=== PATIENT | male | born 1945 | race Hispanic/Latino ===

== ENCOUNTER 2021-06-20 16:50 | Inpatient (IN) | payer MEDICARE, OTHER ==
[~2021-06-20] VITALS: Ht 162.6 cm; Wt 79.2 kg
[2021-06-20] MEDS ORDERED: VITAMIN B-121000 MCG PO (17:33)
[2021-06-20] MEDS ORDERED: XARELTO20 MG PO (17:33)
[2021-06-20] MEDS ORDERED: FEROSUL325 MG PO (17:33)
[2021-06-20] MEDS ORDERED: NEURONTIN300 MG PO (17:33)
[2021-06-20] MEDS ORDERED: LEXAPRO10 MG PO (17:33)
[2021-06-20] MEDS ORDERED: ASPIRIN 81 MG CHEW TAB PO ONE ×2 (18:00)
[2021-06-20] MEDS ORDERED: SODIUM CHLORIDE 0.9% 250ML 250 ML IV ONE (18:00)
[2021-06-20 18:04] LABS: BASOPHILS % 0.4 % (0.0-1.0); EOSINOPHILS % 0.2 % (0.0-6.0); HEMATOCRIT 24.3 % (38.2-49.6); LYMPHOCYTES # (AUTO) 1.8 (1.0-3.2); LYMPHOCYTES % 32.4 % (18.0-39.1); MEAN CORPUSCULAR HEMOGLOBIN 23.5 pg (28-32); MEAN CORPUSCULAR HGB CONC 28.8 g/dL (31-35); MEAN CORPUSCULAR VOLUME 81.5 fL (81-99); MONOCYTES # (AUTO) 0.5 (0.2-0.8); MONOCYTES % 9.8 % (4.4-11.3); NEUTROPHILS # (AUTO) 3.1 (2.1-6.9); NEUTROPHILS % 56.8 % (38.7-80.0); PLATELET COUNT 317 x10e3/uL (140-360); RED BLOOD COUNT 2.98 x10e6/uL (4.3-5.7); RED CELL DISTRIBUTION WIDTH 14.6 % (11.7-14.4)
[2021-06-20 18:24] LABS: ALBUMIN 2.5 g/dL (3.5-5.0); ALBUMIN/GLOBULIN RATIO 0.5 (0.8-2.0); ANION GAP 11.6 mmol/L (8-16); CALCIUM 7.8 mg/dL (8.4-10.2); CREATININE, SERUM 1.27 mg/dL (0.72-1.25); POTASSIUM 4.6 mmol/L (3.5-5.1)
[2021-06-20 18:30] LABS: CREATINE KINASE MB 1.1 ng/mL (0-5.0)
[2021-06-20] MEDS: SODIUM CHLORIDE 0.9% 1000ML 1,000 ML IV SCH (19:36)
[2021-06-20] MEDS: GABAPENTIN 300 MG CAP PO SCH (21:00)
[2021-06-20 21:30] VITALS: BP 131/51
[2021-06-20 21:47] VITALS: BP 131/51
[2021-06-20] MEDS ORDERED: ASPIRIN CHEW81 MG PO (22:36)
[2021-06-20] MEDS ORDERED: BIKTARVY 50-201 EACH PO (22:38)
[2021-06-20] MEDS ORDERED: OMEPRAZOLE40 MG PO (22:39)
[2021-06-21] VITALS (8 sets, daily range): BP systolic 109–141; BP diastolic 45–80
[2021-06-21 02:43] LABS: CREATINE KINASE MB 1.1 ng/mL (0-5.0)
[2021-06-21] MEDS: SODIUM CHLORIDE 0.9% 1000ML 1,000 ML IV SCH (04:00)
[2021-06-21] MEDS ORDERED: SODIUM CHLORIDE 0.9% 250ML 250 ML ONE ×2 (05:29→12:08)
[2021-06-21 06:22] LABS: BASOPHILS % 0.2 % (0.0-1.0); EOSINOPHILS % 0.7 % (0.0-6.0); LYMPHOCYTES # (AUTO) 1.4 (1.0-3.2); LYMPHOCYTES % 33.4 % (18.0-39.1); MEAN CORPUSCULAR HEMOGLOBIN 23.7 pg (28-32); MEAN CORPUSCULAR HGB CONC 29.7 g/dL (31-35); MEAN CORPUSCULAR VOLUME 79.8 fL (81-99); MONOCYTES # (AUTO) 0.6 (0.2-0.8); MONOCYTES % 13.7 % (4.4-11.3); NEUTROPHILS # (AUTO) 2.2 (2.1-6.9); NEUTROPHILS % 51.5 % (38.7-80.0); PLATELET COUNT 312 x10e3/uL (140-360); RED BLOOD COUNT 2.62 x10e6/uL (4.3-5.7); RED CELL DISTRIBUTION WIDTH 14.6 % (11.7-14.4)
[2021-06-21 06:37] LABS: HEMATOCRIT 20.9 % (38.2-49.6); HEMOGLOBIN 6.2 g/dL (14.0-18.0)
[2021-06-21 06:53] LABS: ALBUMIN/GLOBULIN RATIO 0.5 (0.8-2.0); ANION GAP 9.1 mmol/L (8-16); CALCIUM 7.5 mg/dL (8.4-10.2); CREATININE, SERUM 1.15 mg/dL (0.72-1.25); POTASSIUM 4.1 mmol/L (3.5-5.1)
[2021-06-21] MEDS: CITALOPRAM HYDROBROMIDE 20 MG TAB PO SCH (09:10)
[2021-06-21] MEDS: GABAPENTIN 300 MG CAP PO SCH ×3 (09:10→20:08)
[2021-06-21] MEDS: OMEPRAZOLE 20 MG CAP PO SCH (09:10)
[2021-06-21] MEDS ORDERED: IOPAMIDOL 370 MG/ML 200 ML INFUS..BTL INJ ONE (13:14)
[2021-06-21] MEDS ORDERED: SODIUM CHLORIDE 0.9% 50ML 0 ML ONE (13:14)
[2021-06-21 14:33] LABS: CREATINE KINASE MB 1.1 ng/mL (0-5.0)
[2021-06-22 00:05] VITALS: BP 128/70
[2021-06-22 04:13] VITALS: BP 118/51
[2021-06-22 05:07] LABS: BASOPHILS % 0.4 % (0.0-1.0); EOSINOPHILS % 0.8 % (0.0-6.0); HEMATOCRIT 24.1 % (38.2-49.6); HEMOGLOBIN 7.4 g/dL (14.0-18.0); LYMPHOCYTES # (AUTO) 1.5 (1.0-3.2); LYMPHOCYTES % 31.7 % (18.0-39.1); MEAN CORPUSCULAR HEMOGLOBIN 24.9 pg (28-32); MEAN CORPUSCULAR HGB CONC 30.7 g/dL (31-35); MEAN CORPUSCULAR VOLUME 81.1 fL (81-99); MONOCYTES # (AUTO) 0.6 (0.2-0.8); MONOCYTES % 12.9 % (4.4-11.3); NEUTROPHILS # (AUTO) 2.6 (2.1-6.9); NEUTROPHILS % 53.6 % (38.7-80.0); PLATELET COUNT 287 x10e3/uL (140-360); RED BLOOD COUNT 2.97 x10e6/uL (4.3-5.7); RED CELL DISTRIBUTION WIDTH 14.7 % (11.7-14.4)
[2021-06-22 05:22] LABS: ANION GAP 11.1 mmol/L (8-16); CALCIUM 7.4 mg/dL (8.4-10.2); CREATININE, SERUM 1.15 mg/dL (0.72-1.25); POTASSIUM 4.1 mmol/L (3.5-5.1)
[2021-06-22 08:30] VITALS: BP 143/56
[2021-06-22 08:47] VITALS: BP 143/56
[2021-06-22] MEDS: CYANOCOBALAMIN 1,000 MCG TAB PO SCH (08:58)
[2021-06-22] MEDS: CITALOPRAM HYDROBROMIDE 20 MG TAB PO SCH (08:58)
[2021-06-22] MEDS: GABAPENTIN 300 MG CAP PO SCH ×3 (08:58→20:15)
[2021-06-22] MEDS: OMEPRAZOLE 20 MG CAP PO SCH (08:58)
[2021-06-22] MEDS ORDERED: PIPERACILLIN/TAZOBACTAM 3.375 GM in SODIUM CHLORIDE 0.9% 50ML 50 ML IV SCH (10:00)
[2021-06-22] MEDS: Vancomycin IV 1 GM in SODIUM CHLORIDE 0.9% 250ML 250 ML IV SCH ×2 (13:16→20:32)
[2021-06-22 13:43] LABS: HEMATOCRIT 25.6 % (38.2-49.6); HEMOGLOBIN 7.5 g/dL (14.0-18.0); LYMPHOCYTES # (AUTO) 1.1 (1.0-3.2); LYMPHOCYTES % 27.3 % (18.0-39.1); MEAN CORPUSCULAR HEMOGLOBIN 24.3 pg (28-32); MEAN CORPUSCULAR HGB CONC 29.3 g/dL (31-35); MEAN CORPUSCULAR VOLUME 82.8 fL (81-99); MONOCYTES # (AUTO) 0.4 (0.2-0.8); MONOCYTES % 10.8 % (4.4-11.3); NEUTROPHILS # (AUTO) 2.4 (2.1-6.9); NEUTROPHILS % 60.6 % (38.7-80.0); PLATELET COUNT 298 x10e3/uL (140-360); RED BLOOD COUNT 3.09 x10e6/uL (4.3-5.7); RED CELL DISTRIBUTION WIDTH 14.7 % (11.7-14.4)
[2021-06-22] MEDS ORDERED: DEXAMETHASONE PHOS 10MG INJ 20 MG in SODIUM CHLORIDE 0.9% 50ML 50 ML IV ONE (14:30)
[2021-06-22] MEDS ORDERED: FAMOTIDINE INJ 20 MG in SODIUM CHLORIDE 0.9% 50ML 50 ML IV ONE (15:00)
[2021-06-22] MEDS: CEFEPIME 1 GM in SODIUM CHLORIDE 0.9% 50ML 50 ML IV SCH ×2 (15:25→22:15)
[2021-06-22] MEDS ORDERED: DIPHENHYDRAMINE HCL INJ 25 MG in SODIUM CHLORIDE 0.9% 50ML 50 ML IV ONE (15:30)
[2021-06-22] MEDS ORDERED: IRON DEXTRAN INJ 50 MG in SODIUM CHLORIDE 0.9% 100 ML IV ONE (16:00)
[2021-06-22] MEDS ORDERED: IRON DEXTRAN INJ 500 MG in SODIUM CHLORIDE 0.9% 500ML 500 ML IV PRN (16:30)
[2021-06-22] MEDS: ACETAMINOPHEN 325 MG TAB PO PRN (17:33)
[2021-06-22 20:41] VITALS: BP 127/48
[2021-06-22 21:45] VITALS: BP 127/48
[2021-06-23 00:21] VITALS: BP 112/48
[2021-06-23 04:21] VITALS: BP 108/51
[2021-06-23] MEDS: CEFEPIME 1 GM in SODIUM CHLORIDE 0.9% 50ML 50 ML IV SCH ×3 (06:25→22:57)
[2021-06-23 07:27] LABS: BASOPHILS % 0.2 % (0.0-1.0); HEMATOCRIT 25.7 % (38.2-49.6); HEMOGLOBIN 7.5 g/dL (14.0-18.0); LYMPHOCYTES # (AUTO) 0.9 (1.0-3.2); LYMPHOCYTES % 22.4 % (18.0-39.1); MEAN CORPUSCULAR HEMOGLOBIN 24.5 pg (28-32); MEAN CORPUSCULAR HGB CONC 29.2 g/dL (31-35); MONOCYTES # (AUTO) 0.1 (0.2-0.8); MONOCYTES % 1.5 % (4.4-11.3); NEUTROPHILS % 75.4 % (38.7-80.0); PLATELET COUNT 290 x10e3/uL (140-360); RED BLOOD COUNT 3.06 x10e6/uL (4.3-5.7); RED CELL DISTRIBUTION WIDTH 14.6 % (11.7-14.4)
[2021-06-23 07:41] VITALS: BP 116/53
[2021-06-23 07:42] LABS: ALBUMIN 2.2 g/dL (3.5-5.0); ALBUMIN/GLOBULIN RATIO 0.6 (0.8-2.0); ANION GAP 10.9 mmol/L (8-16); CALCIUM 7.5 mg/dL (8.4-10.2); CREATININE, SERUM 1.06 mg/dL (0.72-1.25); POTASSIUM 4.9 mmol/L (3.5-5.1)
[2021-06-23] MEDS: Vancomycin IV 1 GM in SODIUM CHLORIDE 0.9% 250ML 250 ML IV SCH ×2 (09:47→20:55)
[2021-06-23] MEDS: CITALOPRAM HYDROBROMIDE 20 MG TAB PO SCH (09:47)
[2021-06-23] MEDS: OMEPRAZOLE 20 MG CAP PO SCH (09:47)
[2021-06-23] MEDS: CYANOCOBALAMIN 1,000 MCG TAB PO SCH (09:48)
[2021-06-23] MEDS: GABAPENTIN 300 MG CAP PO SCH ×3 (09:48→20:55)
[2021-06-23 11:33] VITALS: BP 101/53
[2021-06-23 15:47] VITALS: BP 111/51
[2021-06-23 20:00] VITALS: BP 116/48
[2021-06-23] MEDS ORDERED: HYDROCODONE/APAP 5MG-325MG TAB PO PRN (20:30)
[2021-06-23] MEDS ORDERED: SODIUM CHLORIDE 0.9% 250ML 250 ML ONE (20:55)
[2021-06-24] VITALS: BP 111/51
[2021-06-24 04:00] VITALS: BP 115/54
[2021-06-24] MEDS: CEFEPIME 1 GM in SODIUM CHLORIDE 0.9% 50ML 50 ML IV SCH ×3 (05:35→22:45)
[2021-06-24] MEDS ORDERED: SODIUM CHLORIDE 0.9% 250ML 250 ML IV ONE (07:30)
[2021-06-24] MEDS: OMEPRAZOLE 20 MG CAP PO SCH (07:30)
[2021-06-24 07:37] VITALS: BP 117/52
[2021-06-24] MEDS: CYANOCOBALAMIN 1,000 MCG TAB PO SCH (09:27)
[2021-06-24] MEDS: Vancomycin IV 1 GM in SODIUM CHLORIDE 0.9% 250ML 250 ML IV SCH ×2 (09:27→20:30)
[2021-06-24] MEDS: CITALOPRAM HYDROBROMIDE 20 MG TAB PO SCH (09:27)
[2021-06-24] MEDS: GABAPENTIN 300 MG CAP PO SCH ×3 (09:27→20:30)
[2021-06-24 11:32] VITALS: BP 114/53
[2021-06-24] MEDS ORDERED: CITRATE OF MAGNESIA 300ML BOTTLE PO ONE (13:00)
[2021-06-24 15:58] VITALS: BP 133/64
[2021-06-24 20:00] VITALS: BP 121/60
[2021-06-25] VITALS (8 sets, daily range): BP systolic 109–134; BP diastolic 50–60
[2021-06-25] MEDS: CEFEPIME 1 GM in SODIUM CHLORIDE 0.9% 50ML 50 ML IV SCH ×3 (05:10→21:24)
[2021-06-25] MEDS: OMEPRAZOLE 20 MG CAP PO SCH (10:56)
[2021-06-25] MEDS: Vancomycin IV 1 GM in SODIUM CHLORIDE 0.9% 250ML 250 ML IV SCH (10:57)
[2021-06-25] MEDS: CITALOPRAM HYDROBROMIDE 20 MG TAB PO SCH (10:57)
[2021-06-25] MEDS: GABAPENTIN 300 MG CAP PO SCH ×3 (10:58→21:24)
[2021-06-25] MEDS: CYANOCOBALAMIN 1,000 MCG TAB PO SCH (11:00)
[2021-06-25] MEDS ORDERED: SODIUM CHLORIDE 0.9% 250ML 250 ML ONE (12:18)
[2021-06-25] MEDS: ACETAMINOPHEN 325 MG TAB PO PRN (21:24)
[2021-06-26] VITALS (8 sets, daily range): BP systolic 90–130; BP diastolic 48–96
[2021-06-26] MEDS: CEFEPIME 1 GM in SODIUM CHLORIDE 0.9% 50ML 50 ML IV SCH ×3 (06:03→22:00)
[2021-06-26] MEDS: OMEPRAZOLE 20 MG CAP PO SCH ×2 (07:30→11:37)
[2021-06-26] MEDS: CYANOCOBALAMIN 1,000 MCG TAB PO SCH ×2 (09:00→11:37)
[2021-06-26] MEDS: CITALOPRAM HYDROBROMIDE 20 MG TAB PO SCH ×2 (09:00→11:37)
[2021-06-26 09:19] LABS: BASOPHILS % 0.6 % (0.0-1.0); EOSINOPHILS # (AUTO) 0.1 (0.0-0.4); EOSINOPHILS % 1.7 % (0.0-6.0); HEMATOCRIT 27.7 % (38.2-49.6); LYMPHOCYTES # (AUTO) 1.1 (1.0-3.2); LYMPHOCYTES % 23.7 % (18.0-39.1); MEAN CORPUSCULAR HEMOGLOBIN 24.2 pg (28-32); MEAN CORPUSCULAR HGB CONC 28.9 g/dL (31-35); MEAN CORPUSCULAR VOLUME 83.9 fL (81-99); MONOCYTES # (AUTO) 0.6 (0.2-0.8); MONOCYTES % 13.3 % (4.4-11.3); NEUTROPHILS # (AUTO) 2.9 (2.1-6.9); NEUTROPHILS % 60.1 % (38.7-80.0); PLATELET COUNT 272 x10e3/uL (140-360); RED CELL DISTRIBUTION WIDTH 15.3 % (11.7-14.4)
[2021-06-26 09:30] LABS: CALCIUM 7.8 mg/dL (8.4-10.2); CREATININE, SERUM 1.02 mg/dL (0.72-1.25)
[2021-06-26] MEDS: GABAPENTIN 300 MG CAP PO SCH ×3 (11:37→21:00)
[2021-06-26] MEDS ORDERED: FENTANYL CITRATE/PF 100MCG/2 ML INJ ONE (11:48)
[2021-06-26] MEDS ORDERED: Morphine 10mg syringe 10 MG/ML INJ ONE (11:48)
[2021-06-26] MEDS ORDERED: KETAMINE HCL INJ 50 MG/ML 10 ML VIAL ONE (11:48)
[2021-06-26] MEDS: Vancomycin IV 1.25 GM in SODIUM CHLORIDE 0.9% 250ML 250 ML IV SCH (12:00)
[2021-06-26] MEDS ORDERED: ACETAMINOPHEN 1000 MG/100 ML IV PRN (14:45)
[2021-06-26] MEDS ORDERED: DIPHENHYDRAMINE HCL INJ 50 MG/ML VIAL IM PRN (14:45)
[2021-06-26] MEDS ORDERED: KETOROLAC TROMETHAMINE 30 MG/ML VIAL IV PRN (14:45)
[2021-06-26] MEDS ORDERED: MORPHINE SULFATE 1 MG/ML 30ML PCA IV PRN (14:45)
[2021-06-26] MEDS ORDERED: ONDANSETRON HCL INJ 2MG/ML 2ML 2 MG/ML VIAL IV PRN (14:45)
[2021-06-26] MEDS ORDERED: NALOXONE HCL INJ 0.4 MG/ML AMP IV PRN (14:45)
[2021-06-26] MEDS ORDERED: MORPHINE SULFATE 1 MG/ML 30ML PCA ONE (15:21)
[2021-06-26] MEDS ORDERED: GLYCOPYRROLATE INJ 0.2 MG/ML VIAL ONE (16:40)
[2021-06-26] MEDS ORDERED: DEXAMETHASONE SOD PHOS INJ 4 MG/ML SDV ONE (16:40)
[2021-06-26] MEDS ORDERED: NEOSTIGMINE 1 MG/ML 10ML VIAL ONE (16:40)
[2021-06-26] MEDS ORDERED: ROCURONIUM BROMIDE 10 MG/ML 5ML VIAL IV ONE (16:40)
[2021-06-26] MEDS ORDERED: PROPOFOL IV EMULSION 10 MG/ML 20 ML VIAL ONE (16:40)
[2021-06-26] MEDS ORDERED: LIDOCAINE HCL 2% LOCAL INJ 5 ML SDV VIAL INJ ONE (16:40)
[2021-06-26] MEDS ORDERED: POVIDONE IODINE 0.05% 0.05 % ML PO ONE (16:40)
[2021-06-26] MEDS ORDERED: ONDANSETRON HCL INJ 2MG/ML 2ML 2 MG/ML VIAL ONE (16:40)
[2021-06-26] MEDS ORDERED: EPHEDRINE SULFATE INJ 50 MG/ML VIAL ONE (16:40)
[2021-06-26] MEDS ORDERED: SEVOFLURANE INHAL SOLN 250 ML PEN BTL ONE (16:40)
[2021-06-26] MEDS ORDERED: SUCCINYLCHOLINE CHLORIDE 20 MG/ML 10ML VIAL ONE (16:40)
[2021-06-26] MEDS: DEXTROSE 5%/LACTATED RINGERS 1,000 ML IV SCH ×2 (17:57→22:16)
[2021-06-27] VITALS (8 sets, daily range): BP systolic 98–117; BP diastolic 55–66
[2021-06-27 05:13] LABS: BASOPHILS % 0.1 % (0.0-1.0); HEMATOCRIT 27.8 % (38.2-49.6); HEMOGLOBIN 7.8 g/dL (14.0-18.0); LYMPHOCYTES # (AUTO) 0.9 (1.0-3.2); LYMPHOCYTES % 8.4 % (18.0-39.1); MEAN CORPUSCULAR HEMOGLOBIN 23.9 pg (28-32); MEAN CORPUSCULAR HGB CONC 28.1 g/dL (31-35); MONOCYTES # (AUTO) 0.9 (0.2-0.8); MONOCYTES % 8.6 % (4.4-11.3); NEUTROPHILS # (AUTO) 8.6 (2.1-6.9); NEUTROPHILS % 82.6 % (38.7-80.0); PLATELET COUNT 301 x10e3/uL (140-360); RED BLOOD COUNT 3.27 x10e6/uL (4.3-5.7); RED CELL DISTRIBUTION WIDTH 15.8 % (11.7-14.4)
[2021-06-27 05:49] LABS: ANION GAP 14.2 mmol/L (8-16); CALCIUM 7.3 mg/dL (8.4-10.2); CREATININE, SERUM 2.37 mg/dL (0.72-1.25)
[2021-06-27 06:24] LABS: POTASSIUM 5.2 mmol/L (3.5-5.1)
[2021-06-27] MEDS: DEXTROSE 5%/LACTATED RINGERS 1,000 ML IV SCH (06:48)
[2021-06-27] MEDS: CEFEPIME 1 GM in SODIUM CHLORIDE 0.9% 50ML 50 ML IV SCH (06:48)
[2021-06-27] MEDS ORDERED: DEXTROSE 5%/0.45% SOD CHL 1,000 ML IV SCH (07:30)
[2021-06-27] MEDS: OMEPRAZOLE 20 MG CAP PO SCH (07:30)
[2021-06-27] MEDS: CITALOPRAM HYDROBROMIDE 20 MG TAB PO SCH (09:00)
[2021-06-27] MEDS: CYANOCOBALAMIN 1,000 MCG TAB PO SCH (09:00)
[2021-06-27] MEDS: Vancomycin IV 1.25 GM in SODIUM CHLORIDE 0.9% 250ML 250 ML IV SCH (11:19)
[2021-06-27] MEDS: Clindamycin INJ 600 MG 600 MG in SODIUM CHLORIDE 0.9% 50ML 50 ML IV SCH ×2 (14:00→22:16)
[2021-06-27] MEDS ORDERED: SOD POLYSTYRENE SULFONATE SUSP 15 GM/60 ML BTL PO ONE (18:00)
[2021-06-27] MEDS: SODIUM CHLORIDE 0.9% 1000ML 1,000 ML IV SCH (18:22)
[2021-06-27] MEDS: ACETAMINOPHEN 325 MG TAB PO PRN (20:45)
[2021-06-28] VITALS (7 sets, daily range): BP systolic 108–130; BP diastolic 58–63
[2021-06-28] MEDS: SODIUM CHLORIDE 0.9% 1000ML 1,000 ML IV SCH ×3 (02:21→21:58)
[2021-06-28 05:04] LABS: BASOPHILS % 0.1 % (0.0-1.0); EOSINOPHILS % 0.2 % (0.0-6.0); HEMATOCRIT 24.1 % (38.2-49.6); LYMPHOCYTES # (AUTO) 0.9 (1.0-3.2); MEAN CORPUSCULAR HEMOGLOBIN 23.8 pg (28-32); MONOCYTES # (AUTO) 0.7 (0.2-0.8); MONOCYTES % 8.8 % (4.4-11.3); NEUTROPHILS # (AUTO) 6.6 (2.1-6.9); NEUTROPHILS % 79.3 % (38.7-80.0); PLATELET COUNT 209 x10e3/uL (140-360); RED BLOOD COUNT 2.94 x10e6/uL (4.3-5.7)
[2021-06-28] MEDS: ACETAMINOPHEN 325 MG TAB PO PRN (05:10)
[2021-06-28] MEDS: Clindamycin INJ 600 MG 600 MG in SODIUM CHLORIDE 0.9% 50ML 50 ML IV SCH ×3 (06:01→21:58)
[2021-06-28 07:00] LABS: ALBUMIN 1.9 g/dL (3.5-5.0); ALBUMIN/GLOBULIN RATIO 0.5 (0.8-2.0); ANION GAP 12.8 mmol/L (8-16); CALCIUM 7.6 mg/dL (8.4-10.2); CREATININE, SERUM 1.95 mg/dL (0.72-1.25); POTASSIUM 4.8 mmol/L (3.5-5.1)
[2021-06-28] MEDS: CITALOPRAM HYDROBROMIDE 20 MG TAB PO SCH ×2 (09:00→09:24)
[2021-06-28] MEDS: OMEPRAZOLE 20 MG CAP PO SCH (09:14)
[2021-06-28] MEDS: CEFTRIAXONE 1 GM in SODIUM CHLORIDE 0.9% 50ML 50 ML IV SCH (09:14)
[2021-06-28] MEDS: CYANOCOBALAMIN 1,000 MCG TAB PO SCH (09:16)
[2021-06-28] MEDS ORDERED: MORPHINE SULFATE 1 MG/ML 30ML PCA IV PRN (12:15)
[2021-06-28] MEDS ORDERED: BISACODYL 10 MG SUPP PR ONE (17:00)
[2021-06-29 01:08] VITALS: BP 141/66
[2021-06-29] MEDS: SODIUM CHLORIDE 0.9% 1000ML 1,000 ML IV SCH ×2 (02:00→11:52)
[2021-06-29 04:41] VITALS: BP 156/70
[2021-06-29] MEDS: Clindamycin INJ 600 MG 600 MG in SODIUM CHLORIDE 0.9% 50ML 50 ML IV SCH ×3 (05:52→21:45)
[2021-06-29] MEDS: ACETAMINOPHEN 325 MG TAB PO PRN (05:57)
[2021-06-29 06:00] LABS: BASOPHILS % 0.1 % (0.0-1.0); EOSINOPHILS % 0.3 % (0.0-6.0); LYMPHOCYTES # (AUTO) 0.9 (1.0-3.2); LYMPHOCYTES % 9.4 % (18.0-39.1); MEAN CORPUSCULAR HEMOGLOBIN 23.6 pg (28-32); MEAN CORPUSCULAR HGB CONC 28.3 g/dL (31-35); MEAN CORPUSCULAR VOLUME 83.3 fL (81-99); MONOCYTES # (AUTO) 0.9 (0.2-0.8); MONOCYTES % 9.7 % (4.4-11.3); NEUTROPHILS # (AUTO) 7.7 (2.1-6.9); NEUTROPHILS % 79.8 % (38.7-80.0); RED BLOOD COUNT 2.88 x10e6/uL (4.3-5.7); RED CELL DISTRIBUTION WIDTH 15.9 % (11.7-14.4)
[2021-06-29 06:11] LABS: HEMOGLOBIN 6.9 g/dL (14.0-18.0)
[2021-06-29 06:14] LABS: PLATELET COUNT 240 x10e3/uL (140-360)
[2021-06-29 06:31] LABS: ALBUMIN 1.8 g/dL (3.5-5.0); ALBUMIN/GLOBULIN RATIO 0.4 (0.8-2.0); ANION GAP 13.4 mmol/L (8-16); CALCIUM 7.8 mg/dL (8.4-10.2); CREATININE, SERUM 1.19 mg/dL (0.72-1.25); POTASSIUM 4.4 mmol/L (3.5-5.1)
[2021-06-29] MEDS ORDERED: SODIUM CHLORIDE 0.9% 250ML 250 ML IV ONE ×2 (07:00→09:30)
[2021-06-29] MEDS ORDERED: FUROSEMIDE INJ 10 MG/ML 4 ML VIAL IV ONE (07:00)
[2021-06-29 08:28] VITALS: BP 129/54
[2021-06-29] MEDS: CEFTRIAXONE 1 GM in SODIUM CHLORIDE 0.9% 50ML 50 ML IV SCH (08:44)
[2021-06-29] MEDS: CITALOPRAM HYDROBROMIDE 20 MG TAB PO SCH (08:47)
[2021-06-29] MEDS: CYANOCOBALAMIN 1,000 MCG TAB PO SCH (08:47)
[2021-06-29] MEDS ORDERED: DEXAMETHASONE SOD PHOS 10 MG/1 ML VIAL IV ONE (09:30)
[2021-06-29] MEDS ORDERED: FUROSEMIDE INJ 10 MG/ML 2 ML VIAL IV ONE (09:30)
[2021-06-29 20:00] VITALS: BP 112/55
[2021-06-29 21:00] VITALS: BP 112/55
[2021-06-30] VITALS (8 sets, daily range): BP systolic 98–125; BP diastolic 45–54
[2021-06-30] MEDS: SODIUM CHLORIDE 0.9% 1000ML 1,000 ML IV SCH ×3 (00:20→23:58)
[2021-06-30] MEDS ORDERED: SODIUM CHLORIDE 0.9% 250ML 250 ML ONE (05:21)
[2021-06-30] MEDS: Clindamycin INJ 600 MG 600 MG in SODIUM CHLORIDE 0.9% 50ML 50 ML IV SCH ×3 (05:30→21:35)
[2021-06-30] MEDS ORDERED: HYDROCODONE/APAP 5MG-325MG TAB PO PRN (06:15)
[2021-06-30] MEDS: CEFTRIAXONE 1 GM in SODIUM CHLORIDE 0.9% 50ML 50 ML IV SCH (09:27)
[2021-06-30] MEDS ORDERED: ACETAMINOPHEN 1000 MG/100 ML IV PRN (09:30)
[2021-06-30 18:03] LABS: BASOPHILS % 0.1 % (0.0-1.0); HEMATOCRIT 27.2 % (38.2-49.6); HEMOGLOBIN 8.3 g/dL (14.0-18.0); LYMPHOCYTES # (AUTO) 1.2 (1.0-3.2); MEAN CORPUSCULAR HEMOGLOBIN 24.7 pg (28-32); MEAN CORPUSCULAR HGB CONC 30.5 g/dL (31-35); MONOCYTES # (AUTO) 0.5 (0.2-0.8); MONOCYTES % 7.3 % (4.4-11.3); NEUTROPHILS # (AUTO) 4.9 (2.1-6.9); NEUTROPHILS % 74.2 % (38.7-80.0); PLATELET COUNT 213 x10e3/uL (140-360); RED BLOOD COUNT 3.36 x10e6/uL (4.3-5.7); RED CELL DISTRIBUTION WIDTH 15.3 % (11.7-14.4)
[2021-06-30 18:22] LABS: ALBUMIN 1.9 g/dL (3.5-5.0); ALBUMIN/GLOBULIN RATIO 0.5 (0.8-2.0); ANION GAP 9.8 mmol/L (8-16); CALCIUM 8.1 mg/dL (8.4-10.2); CREATININE, SERUM 1.05 mg/dL (0.72-1.25); POTASSIUM 3.8 mmol/L (3.5-5.1)
[2021-06-30] MEDS: HYDROMORPHONE 1MG/1ML INJ IV PRN (21:35)
[2021-07-01] VITALS (8 sets, daily range): BP systolic 93–141; BP diastolic 51–90
[2021-07-01 05:48] LABS: BASOPHILS % 0.2 % (0.0-1.0); EOSINOPHILS % 0.7 % (0.0-6.0); HEMATOCRIT 29.5 % (38.2-49.6); LYMPHOCYTES # (AUTO) 1.3 (1.0-3.2); LYMPHOCYTES % 23.3 % (18.0-39.1); MEAN CORPUSCULAR HEMOGLOBIN 24.6 pg (28-32); MEAN CORPUSCULAR HGB CONC 30.5 g/dL (31-35); MEAN CORPUSCULAR VOLUME 80.6 fL (81-99); MONOCYTES # (AUTO) 0.4 (0.2-0.8); MONOCYTES % 7.8 % (4.4-11.3); NEUTROPHILS # (AUTO) 3.6 (2.1-6.9); NEUTROPHILS % 67.4 % (38.7-80.0); PLATELET COUNT 209 x10e3/uL (140-360); RED BLOOD COUNT 3.66 x10e6/uL (4.3-5.7); RED CELL DISTRIBUTION WIDTH 15.5 % (11.7-14.4)
[2021-07-01 06:21] LABS: ANION GAP 12.4 mmol/L (8-16); POTASSIUM 3.4 mmol/L (3.5-5.1)
[2021-07-01] MEDS: Clindamycin INJ 600 MG 600 MG in SODIUM CHLORIDE 0.9% 50ML 50 ML IV SCH ×3 (06:26→21:09)
[2021-07-01] MEDS: CEFTRIAXONE 1 GM in SODIUM CHLORIDE 0.9% 50ML 50 ML IV SCH (08:37)
[2021-07-01] MEDS: HYDROMORPHONE 1MG/1ML INJ IV PRN ×3 (08:37→23:40)
[2021-07-01] MEDS ORDERED: POTASSIUM CHLORIDE 10MEQ EA PO NR (10:30)
[2021-07-01] MEDS: SOD CHL 0.45%/POT CHL 20MEQ 1,000 ML IV SCH ×2 (17:21→19:59)
[2021-07-02] VITALS (8 sets, daily range): BP systolic 112–128; BP diastolic 53–63
[2021-07-02] MEDS: SOD CHL 0.45%/POT CHL 20MEQ 1,000 ML IV SCH (03:50)
[2021-07-02] MEDS: Clindamycin INJ 600 MG 600 MG in SODIUM CHLORIDE 0.9% 50ML 50 ML IV SCH (06:40)
[2021-07-02 07:36] LABS: BASOPHILS % 0.1 % (0.0-1.0); EOSINOPHILS % 0.5 % (0.0-6.0); HEMATOCRIT 29.7 % (38.2-49.6); LYMPHOCYTES # (AUTO) 1.5 (1.0-3.2); LYMPHOCYTES % 20.6 % (18.0-39.1); MEAN CORPUSCULAR HEMOGLOBIN 24.4 pg (28-32); MEAN CORPUSCULAR HGB CONC 30.3 g/dL (31-35); MEAN CORPUSCULAR VOLUME 80.5 fL (81-99); MONOCYTES # (AUTO) 0.4 (0.2-0.8); MONOCYTES % 5.7 % (4.4-11.3); NEUTROPHILS # (AUTO) 5.3 (2.1-6.9); NEUTROPHILS % 72.4 % (38.7-80.0); PLATELET COUNT 206 x10e3/uL (140-360); RED BLOOD COUNT 3.69 x10e6/uL (4.3-5.7); RED CELL DISTRIBUTION WIDTH 15.9 % (11.7-14.4)
[2021-07-02 08:02] LABS: ANION GAP 11.5 mmol/L (8-16); CALCIUM 8.1 mg/dL (8.4-10.2); CREATININE, SERUM 1.03 mg/dL (0.72-1.25); POTASSIUM 3.5 mmol/L (3.5-5.1)
[2021-07-02 08:27] LABS: MAGNESIUM 1.6 MG/DL (1.3-2.1)
[2021-07-02] MEDS ORDERED: HYDROCODONE/APAP 7.5MG-325MG 1 EA TAB PO PRN (08:45)
[2021-07-02] MEDS: CEFTRIAXONE 1 GM in SODIUM CHLORIDE 0.9% 50ML 50 ML IV SCH (09:12)
[2021-07-02] MEDS ORDERED: POTASSIUM CHLORIDE 10MEQ EA PO ONE (09:45)
[2021-07-02] MEDS: PANTOPRAZOLE SOD 40 MG TABEC PO SCH (09:45)
[2021-07-02] MEDS: SENNA-S TABLET PO SCH ×2 (09:58→17:29)
[2021-07-02] MEDS: CELECOXIB 100 MG CAP PO SCH ×2 (09:58→17:29)
[2021-07-02] MEDS: POLYETHYLENE GLYCOL 3350 17 GM PACK PO SCH ×2 (09:58→17:00)
[2021-07-02] MEDS ORDERED: ALBUTEROL/IPRATROPIUM 3 ML NEB NEB PRN (14:15)
[2021-07-03 00:21] VITALS: BP 119/55
[2021-07-03 04:52] VITALS: BP 122/60
[2021-07-03 05:48] LABS: BASOPHILS % 0.3 % (0.0-1.0); EOSINOPHILS # (AUTO) 0.1 (0.0-0.4); EOSINOPHILS % 1.4 % (0.0-6.0); HEMATOCRIT 27.9 % (38.2-49.6); HEMOGLOBIN 8.5 g/dL (14.0-18.0); LYMPHOCYTES # (AUTO) 1.1 (1.0-3.2); LYMPHOCYTES % 16.6 % (18.0-39.1); MEAN CORPUSCULAR HEMOGLOBIN 24.4 pg (28-32); MEAN CORPUSCULAR HGB CONC 30.5 g/dL (31-35); MEAN CORPUSCULAR VOLUME 80.2 fL (81-99); MONOCYTES # (AUTO) 0.4 (0.2-0.8); NEUTROPHILS # (AUTO) 4.9 (2.1-6.9); NEUTROPHILS % 75.1 % (38.7-80.0); PLATELET COUNT 203 x10e3/uL (140-360); RED BLOOD COUNT 3.48 x10e6/uL (4.3-5.7); RED CELL DISTRIBUTION WIDTH 15.8 % (11.7-14.4)
[2021-07-03 06:13] LABS: ANION GAP 10.7 mmol/L (8-16); CREATININE, SERUM 0.86 mg/dL (0.72-1.25); POTASSIUM 3.7 mmol/L (3.5-5.1)
[2021-07-03 08:45] VITALS: BP 128/58
[2021-07-03 08:54] VITALS: BP 128/58
[2021-07-03] MEDS: SENNA-S TABLET PO SCH (08:54)
[2021-07-03] MEDS: CELECOXIB 100 MG CAP PO SCH (08:54)
[2021-07-03] MEDS: POLYETHYLENE GLYCOL 3350 17 GM PACK PO SCH (08:54)
[2021-07-03] MEDS: PANTOPRAZOLE SOD 40 MG TABEC PO SCH (08:54)
[2021-07-03] MEDS ORDERED: ONDANSETRON ODT4 MG PO (09:53)
[2021-07-03] MEDS ORDERED: keflex PO (09:53)
[2021-07-03] MEDS ORDERED: FLOMAX0.4 MG PO (09:54)
[2021-07-03] MEDS ORDERED: CELEBREX100 MG PO (09:54)
== END 2021-07-03 10:33 | disposition home health service (06) | DRG 330 ==
LOC: ER 17:17 → ERHOLD 19:17 → OBSVTOIN 20:00 → MED/SURG2 20:51
PROVIDERS: ADMIT Internal Medicine; ATTEND Internal Medicine
PROC: 30233N1 Transfusion of Nonautologous Red Blood Cells into Peripheral Vein, Percutaneous Approach (ICD-10-PCS; 2021-06-21)
PROC: 0WPF0JZ Removal of Synthetic Substitute from Abdominal Wall, Open Approach (ICD-10-PCS; 2021-06-26)
PROC: 0DN80ZZ Release Small Intestine, Open Approach (ICD-10-PCS; 2021-06-26)
PROC: 0DB80ZZ Excision of Small Intestine, Open Approach (ICD-10-PCS; principal; 2021-06-26 12:30)
DX: K63.2 Fistula of intestine (principal); L02.211 Cutaneous abscess of abdominal wall; T85.79XA Infection and inflammatory reaction due to other internal prosthetic devices, implants and grafts, initial encounter; B20 Human immunodeficiency virus [HIV] disease; D68.59 Other primary thrombophilia; I82.891 Chronic embolism and thrombosis of other specified veins; N17.9 Acute kidney failure, unspecified; D64.9 Anemia, unspecified; I20.9 Angina pectoris, unspecified; Z85.038 Personal history of other malignant neoplasm of large intestine; R31.9 Hematuria, unspecified; E77.8 Other disorders of glycoprotein metabolism; E88.09 Other disorders of plasma-protein metabolism, not elsewhere classified; R77.1 Abnormality of globulin; K76.0 Fatty (change of) liver, not elsewhere classified; K57.10 Diverticulosis of small intestine without perforation or abscess without bleeding; Z20.822 Contact with and (suspected) exposure to COVID-19; Z79.01 Long term (current) use of anticoagulants; N40.0 Benign prostatic hyperplasia without lower urinary tract symptoms; D50.9 Iron deficiency anemia, unspecified; K63.89 Other specified diseases of intestine; Z90.49 Acquired absence of other specified parts of digestive tract; Z91.19 Patient's noncompliance with other medical treatment and regimen; Z91.11 Patient's noncompliance with dietary regimen; D89.0 Polyclonal hypergammaglobulinemia; B96.20 Unspecified Escherichia coli [E. coli] as the cause of diseases classified elsewhere; R53.81 Other malaise; R41.0 Disorientation, unspecified; K66.0 Peritoneal adhesions (postprocedural) (postinfection)
CPT/HCPCS: 36415; 71045; 71260; 74019; 74176; 74177; 80048; 80053; 80202; 82550; 82553; 82784; 83735; 84100; 84484; 85025; 86850; 86870; 86880; 86900; 86905; 86920; 86922; 87071; 87075; 87186; 87205; 88300; 88305; 88307; 93005; 94799; 96361; 97139; 99001; 99284; J0330; J0690; J0692; J0696; J1100; J1170; J1200; J1750; J1940; J2001; J2270; J2405; J2543; J2710; J3010; J3370; J7030; J7040; J7050; P9016; Q9967; U0002

== ENCOUNTER 2021-07-03 19:44 | Inpatient (IN) | payer MEDICARE, OTHER ==
[~2021-07-03] VITALS: Ht 162.6 cm; Wt 85.7 kg
[~2021-07-03 19:44] MED LIST: ASPIRIN CHEW81 MG PO; BIKTARVY 50-201 EACH PO; CELEBREX100 MG PO; FEROSUL325 MG PO; FLOMAX0.4 MG PO; LEXAPRO10 MG PO; NEURONTIN300 MG PO; OMEPRAZOLE40 MG PO; ONDANSETRON ODT4 MG PO; VITAMIN B-121000 MCG PO; XARELTO20 MG PO; keflex PO
[2021-07-03] MEDS ORDERED: SODIUM CHLORIDE 0.9% 1000ML 1,000 ML IV STA ×2 (20:07→23:06)
[2021-07-03] MEDS ORDERED: PIPERACILLIN/TAZOBACTAM 3.375 GM in SODIUM CHLORIDE 0.9% 50ML 50 ML IV STA (20:07)
[2021-07-03] MEDS ORDERED: Vancomycin IV 1 GM in SODIUM CHLORIDE 0.9% 250ML 250 ML IV STA (20:07)
[2021-07-03 20:18] LABS: BASOPHILS % 0.2 % (0.0-1.0); EOSINOPHILS # (AUTO) 0.1 (0.0-0.4); EOSINOPHILS % 0.4 % (0.0-6.0); HEMATOCRIT 31.7 % (38.2-49.6); HEMOGLOBIN 9.8 g/dL (14.0-18.0); LYMPHOCYTES % 8.5 % (18.0-39.1); MEAN CORPUSCULAR HEMOGLOBIN 24.6 pg (28-32); MEAN CORPUSCULAR HGB CONC 30.9 g/dL (31-35); MEAN CORPUSCULAR VOLUME 79.6 fL (81-99); MONOCYTES # (AUTO) 0.3 (0.2-0.8); MONOCYTES % 2.9 % (4.4-11.3); NEUTROPHILS # (AUTO) 10.2 (2.1-6.9); NEUTROPHILS % 87.5 % (38.7-80.0); PLATELET COUNT 314 x10e3/uL (140-360); RED BLOOD COUNT 3.98 x10e6/uL (4.3-5.7); RED CELL DISTRIBUTION WIDTH 15.9 % (11.7-14.4)
[2021-07-03 20:35] LABS: ALBUMIN 2.2 g/dL (3.5-5.0); ALBUMIN/GLOBULIN RATIO 0.5 (0.8-2.0); CALCIUM 8.5 mg/dL (8.4-10.2); CREATININE, SERUM 1.01 mg/dL (0.72-1.25)
[2021-07-03] MEDS ORDERED: ACETAMINOPHEN 1000 MG/100 ML IV STA (20:44)
[2021-07-03] MEDS ORDERED: SODIUM CHLORIDE 0.9% 50ML 50 ML ONE (21:22)
[2021-07-03] MEDS ORDERED: IOPAMIDOL 370 MG/ML 200 ML INFUS..BTL INJ ONE (21:22)
[2021-07-04] VITALS (8 sets, daily range): BP systolic 95–119; BP diastolic 50–54
[2021-07-04] MEDS ORDERED: SODIUM CHLORIDE 0.9% 50ML 50 ML ONE ×2 (00:36→20:44)
[2021-07-04] MEDS ORDERED: IOPAMIDOL 370 MG/ML 200 ML INFUS..BTL INJ ONE ×2 (00:37→20:44)
[2021-07-04] MEDS: SODIUM CHLORIDE 0.9% 1000ML 1,000 ML IV SCH ×2 (03:15→06:36)
[2021-07-04 08:06] LABS: BASOPHILS % 0.3 % (0.0-1.0); EOSINOPHILS # (AUTO) 0.1 (0.0-0.4); EOSINOPHILS % 1.2 % (0.0-6.0); HEMATOCRIT 24.7 % (38.2-49.6); HEMOGLOBIN 7.3 g/dL (14.0-18.0); LYMPHOCYTES # (AUTO) 0.8 (1.0-3.2); LYMPHOCYTES % 10.1 % (18.0-39.1); MEAN CORPUSCULAR HEMOGLOBIN 24.4 pg (28-32); MEAN CORPUSCULAR HGB CONC 29.6 g/dL (31-35); MEAN CORPUSCULAR VOLUME 82.6 fL (81-99); MONOCYTES # (AUTO) 0.5 (0.2-0.8); MONOCYTES % 6.3 % (4.4-11.3); NEUTROPHILS # (AUTO) 6.2 (2.1-6.9); NEUTROPHILS % 81.4 % (38.7-80.0); PLATELET COUNT 280 x10e3/uL (140-360); RED BLOOD COUNT 2.99 x10e6/uL (4.3-5.7); RED CELL DISTRIBUTION WIDTH 16.2 % (11.7-14.4)
[2021-07-04 08:29] LABS: ANION GAP 8.8 mmol/L (8-16); CREATININE, SERUM 0.81 mg/dL (0.72-1.25); POTASSIUM 3.8 mmol/L (3.5-5.1)
[2021-07-04 08:39] LABS: CALCIUM 6.6 mg/dL (8.4-10.2)
[2021-07-04] MEDS ORDERED: ONDANSETRON HCL 4 MG ORAL DISINTEGRATING TAB PO PRN (08:45)
[2021-07-04] MEDS ORDERED: CEPHALEXIN 500 MG CAP PO SCH (09:00)
[2021-07-04] MEDS ORDERED: ESCITALOPRAM OXALATE 10 MG TAB PO SCH (09:00)
[2021-07-04] MEDS ORDERED: PANTOPRAZOLE SOD 40 MG TABEC PO SCH (09:00)
[2021-07-04] MEDS ORDERED: CYANOCOBALAMIN 1,000 MCG TAB PO SCH (09:00)
[2021-07-04] MEDS: ENOXAPARIN 30 MG/0.3 ML SYR SC SCH ×2 (10:00→19:59)
[2021-07-04] MEDS: TAMSULOSIN HCL 0.4 MG CAP PO SCH ×2 (10:21→18:33)
[2021-07-04] MEDS: PIPERACILLIN/TAZOBACTAM 3.375 GM in SODIUM CHLORIDE 0.9% 50ML 50 ML IV SCH ×4 (10:21→22:03)
[2021-07-04] MEDS: FERROUS SULFATE 325 MG TAB PO SCH (10:21)
[2021-07-04 12:14] LABS: INR 1.25; PROTHROMBIN TIME 16.7 seconds (11.9-14.5)
[2021-07-04] MEDS: Vancomycin IV 1 GM in SODIUM CHLORIDE 0.9% 250ML 250 ML IV SCH ×2 (14:08→23:24)
[2021-07-04] MEDS ORDERED: SODIUM CHLORIDE 0.9% 250ML 250 ML IV ONE (16:30)
[2021-07-04] MEDS ORDERED: SODIUM HYPOCHLORITE 0.25% 480 ML SOLN IR ONE (18:40)
[2021-07-04] MEDS ORDERED: RIVAROXABAN 10 MG TABLET PO SCH (21:00)
[2021-07-04] MEDS: KETOROLAC TROMETHAMINE 30 MG/ML VIAL IV PRN (23:30)
[2021-07-05] VITALS (8 sets, daily range): BP systolic 92–125; BP diastolic 42–64
[2021-07-05] MEDS: PIPERACILLIN/TAZOBACTAM 3.375 GM in SODIUM CHLORIDE 0.9% 50ML 50 ML IV SCH ×4 (03:03→21:42)
[2021-07-05] MEDS ORDERED: SODIUM CHLORIDE 0.9% 250ML 250 ML ONE ×3 (03:57→10:40)
[2021-07-05] MEDS: KETOROLAC TROMETHAMINE 30 MG/ML VIAL IV PRN ×3 (05:35→21:04)
[2021-07-05] MEDS ORDERED: BUPIVACAINE HCL 0.5% INJ 30 ML VIAL INJ ONE (07:57)
[2021-07-05] MEDS: FERROUS SULFATE 325 MG TAB PO SCH (09:00)
[2021-07-05] MEDS: TAMSULOSIN HCL 0.4 MG CAP PO SCH ×2 (09:00→16:01)
[2021-07-05] MEDS ORDERED: ENOXAPARIN 30 MG/0.3 ML SYR SC SCH (09:00)
[2021-07-05] MEDS ORDERED: HYDROCODONE/APAP 5MG-325MG TAB PO PRN (09:30)
[2021-07-05] MEDS: Vancomycin IV 1 GM in SODIUM CHLORIDE 0.9% 250ML 250 ML IV SCH ×2 (11:23→22:46)
[2021-07-05 12:53] LABS: BASOPHILS % 0.1 % (0.0-1.0); EOSINOPHILS % 0.2 % (0.0-6.0); HEMATOCRIT 31.5 % (38.2-49.6); HEMOGLOBIN 9.7 g/dL (14.0-18.0); LYMPHOCYTES # (AUTO) 0.6 (1.0-3.2); LYMPHOCYTES % 7.4 % (18.0-39.1); MEAN CORPUSCULAR HEMOGLOBIN 25.3 pg (28-32); MEAN CORPUSCULAR HGB CONC 30.8 g/dL (31-35); MEAN CORPUSCULAR VOLUME 82.2 fL (81-99); MONOCYTES # (AUTO) 0.3 (0.2-0.8); MONOCYTES % 3.7 % (4.4-11.3); NEUTROPHILS # (AUTO) 7.7 (2.1-6.9); NEUTROPHILS % 88.1 % (38.7-80.0); PLATELET COUNT 286 x10e3/uL (140-360); RED BLOOD COUNT 3.83 x10e6/uL (4.3-5.7)
[2021-07-05 13:09] LABS: ANION GAP 11.8 mmol/L (8-16); CREATININE, SERUM 0.85 mg/dL (0.72-1.25); POTASSIUM 3.8 mmol/L (3.5-5.1)
[2021-07-05 13:11] LABS: MAGNESIUM 1.7 MG/DL (1.3-2.1); PHOSPHORUS 3.5 MG/DL (2.3-4.7)
[2021-07-05] MEDS ORDERED: LIDOCAINE HCL 2% LOCAL INJ 5 ML SDV VIAL INJ ONE (13:11)
[2021-07-05] MEDS ORDERED: NEOSTIGMINE 1 MG/ML 10ML VIAL ONE (13:11)
[2021-07-05] MEDS ORDERED: ONDANSETRON HCL INJ 2MG/ML 2ML 2 MG/ML VIAL ONE (13:11)
[2021-07-05] MEDS ORDERED: GLYCOPYRROLATE INJ 0.2 MG/ML VIAL ONE (13:11)
[2021-07-05] MEDS ORDERED: DEXAMETHASONE SOD PHOS INJ 4 MG/ML SDV ONE (13:11)
[2021-07-05] MEDS ORDERED: POVIDONE IODINE 0.05% 0.05 % ML PO ONE (13:11)
[2021-07-05] MEDS ORDERED: PROPOFOL IV EMULSION 10 MG/ML 20 ML VIAL ONE (13:11)
[2021-07-05] MEDS ORDERED: SEVOFLURANE INHAL SOLN 250 ML PEN BTL ONE (13:11)
[2021-07-05] MEDS ORDERED: ROCURONIUM BROMIDE 10 MG/ML 5ML VIAL IV ONE (13:11)
[2021-07-05] MEDS ORDERED: FENTANYL CITRATE/PF 100MCG/2 ML INJ ONE (13:23)
[2021-07-05] MEDS: ENOXAPARIN SOD INJ 60 MG/0.6 ML SYR SC SCH (21:42)
[2021-07-06] VITALS: BP 114/60
[2021-07-06] MEDS: PIPERACILLIN/TAZOBACTAM 3.375 GM in SODIUM CHLORIDE 0.9% 50ML 50 ML IV SCH ×4 (03:05→22:20)
[2021-07-06 05:08] LABS: BASOPHILS % 0.4 % (0.0-1.0); EOSINOPHILS % 0.5 % (0.0-6.0); HEMATOCRIT 32.7 % (38.2-49.6); LYMPHOCYTES # (AUTO) 1.2 (1.0-3.2); LYMPHOCYTES % 15.2 % (18.0-39.1); MEAN CORPUSCULAR HEMOGLOBIN 25.3 pg (28-32); MEAN CORPUSCULAR HGB CONC 30.6 g/dL (31-35); MEAN CORPUSCULAR VOLUME 82.8 fL (81-99); MONOCYTES # (AUTO) 0.8 (0.2-0.8); MONOCYTES % 9.4 % (4.4-11.3); NEUTROPHILS # (AUTO) 5.9 (2.1-6.9); NEUTROPHILS % 74.1 % (38.7-80.0); PLATELET COUNT 302 x10e3/uL (140-360); RED BLOOD COUNT 3.95 x10e6/uL (4.3-5.7); RED CELL DISTRIBUTION WIDTH 16.1 % (11.7-14.4)
[2021-07-06] MEDS: KETOROLAC TROMETHAMINE 30 MG/ML VIAL IV PRN ×2 (05:08→16:15)
[2021-07-06 05:55] LABS: CALCIUM 7.8 mg/dL (8.4-10.2); CREATININE, SERUM 0.9 mg/dL (0.72-1.25)
[2021-07-06 05:58] VITALS: BP 117/56
[2021-07-06 08:00] VITALS: BP 102/45
[2021-07-06] MEDS: ENOXAPARIN SOD INJ 60 MG/0.6 ML SYR SC SCH ×2 (09:00→21:05)
[2021-07-06] MEDS: TAMSULOSIN HCL 0.4 MG CAP PO SCH ×2 (09:00→17:00)
[2021-07-06] MEDS: FERROUS SULFATE 325 MG TAB PO SCH (09:00)
[2021-07-06] MEDS: Vancomycin IV 1 GM in SODIUM CHLORIDE 0.9% 250ML 250 ML IV SCH ×2 (11:30→23:00)
[2021-07-06 18:04] VITALS: BP 126/59
[2021-07-06 20:00] VITALS: BP 120/66
[2021-07-06 23:56] VITALS: BP 119/62
[2021-07-07] VITALS (7 sets, daily range): BP systolic 101–130; BP diastolic 50–65
[2021-07-07] MEDS: PIPERACILLIN/TAZOBACTAM 3.375 GM in SODIUM CHLORIDE 0.9% 50ML 50 ML IV SCH (04:00)
[2021-07-07 04:56] LABS: BASOPHILS % 0.3 % (0.0-1.0); EOSINOPHILS # (AUTO) 0.1 (0.0-0.4); EOSINOPHILS % 0.9 % (0.0-6.0); HEMATOCRIT 27.4 % (38.2-49.6); HEMOGLOBIN 8.4 g/dL (14.0-18.0); LYMPHOCYTES # (AUTO) 1.1 (1.0-3.2); LYMPHOCYTES % 17.3 % (18.0-39.1); MEAN CORPUSCULAR HEMOGLOBIN 25.2 pg (28-32); MEAN CORPUSCULAR HGB CONC 30.7 g/dL (31-35); MEAN CORPUSCULAR VOLUME 82.3 fL (81-99); MONOCYTES # (AUTO) 0.7 (0.2-0.8); MONOCYTES % 11.1 % (4.4-11.3); NEUTROPHILS # (AUTO) 4.5 (2.1-6.9); NEUTROPHILS % 69.9 % (38.7-80.0); PLATELET COUNT 281 x10e3/uL (140-360); RED BLOOD COUNT 3.33 x10e6/uL (4.3-5.7); RED CELL DISTRIBUTION WIDTH 16.2 % (11.7-14.4)
[2021-07-07] MEDS ORDERED: SODIUM CHLORIDE 0.9% 250ML 250 ML ONE (05:07)
[2021-07-07 05:11] LABS: ANION GAP 10.3 mmol/L (8-16); POTASSIUM 3.3 mmol/L (3.5-5.1)
[2021-07-07] MEDS: FERROUS SULFATE 325 MG TAB PO SCH (09:00)
[2021-07-07] MEDS: ENOXAPARIN SOD INJ 60 MG/0.6 ML SYR SC SCH (09:00)
[2021-07-07] MEDS: TAMSULOSIN HCL 0.4 MG CAP PO SCH ×2 (09:00→17:00)
[2021-07-07] MEDS ORDERED: POTASSIUM CHLORIDE 10MEQ EA PO ONE (10:30)
[2021-07-07] MEDS: KETOROLAC TROMETHAMINE 30 MG/ML VIAL IV PRN ×2 (13:45→23:31)
[2021-07-07] MEDS: MEROPENEM 500 MG in SODIUM CHLORIDE 0.9% 50ML 50 ML IV SCH ×2 (14:00→21:22)
[2021-07-07] MEDS ORDERED: RIVAROXABAN 20 MG TABLET PO SCH (17:00)
[2021-07-07] MEDS: MAGNESIUM OXIDE 400 MG TAB PO SCH (17:00)
[2021-07-07] MEDS: RIVAROXABAN 10 MG TABLET PO SCH (21:22)
[2021-07-08] VITALS (8 sets, daily range): BP systolic 114–148; BP diastolic 49–68
[2021-07-08] MEDS: MEROPENEM 500 MG in SODIUM CHLORIDE 0.9% 50ML 50 ML IV SCH ×3 (06:00→22:50)
[2021-07-08] MEDS: MAGNESIUM OXIDE 400 MG TAB PO SCH ×2 (09:00→17:00)
[2021-07-08] MEDS: FERROUS SULFATE 325 MG TAB PO SCH (09:00)
[2021-07-08] MEDS: TAMSULOSIN HCL 0.4 MG CAP PO SCH ×2 (09:00→17:00)
[2021-07-08] MEDS: RIVAROXABAN 10 MG TABLET PO SCH (17:00)
[2021-07-08] MEDS: KETOROLAC TROMETHAMINE 30 MG/ML VIAL IV PRN (20:39)
[2021-07-09 00:10] VITALS: BP 126/86
[2021-07-09 05:06] VITALS: BP 140/59
[2021-07-09 05:38] LABS: BASOPHILS % 0.6 % (0.0-1.0); EOSINOPHILS # (AUTO) 0.1 (0.0-0.4); EOSINOPHILS % 1.7 % (0.0-6.0); HEMATOCRIT 28.5 % (38.2-49.6); HEMOGLOBIN 8.8 g/dL (14.0-18.0); LYMPHOCYTES # (AUTO) 1.1 (1.0-3.2); LYMPHOCYTES % 19.6 % (18.0-39.1); MEAN CORPUSCULAR HEMOGLOBIN 25.1 pg (28-32); MEAN CORPUSCULAR HGB CONC 30.9 g/dL (31-35); MEAN CORPUSCULAR VOLUME 81.2 fL (81-99); MONOCYTES # (AUTO) 0.6 (0.2-0.8); MONOCYTES % 10.1 % (4.4-11.3); NEUTROPHILS # (AUTO) 3.7 (2.1-6.9); NEUTROPHILS % 67.6 % (38.7-80.0); PLATELET COUNT 375 x10e3/uL (140-360); RED BLOOD COUNT 3.51 x10e6/uL (4.3-5.7); RED CELL DISTRIBUTION WIDTH 16.7 % (11.7-14.4)
[2021-07-09 06:10] LABS: ANION GAP 8.5 mmol/L (8-16); CALCIUM 7.1 mg/dL (8.4-10.2); CREATININE, SERUM 0.97 mg/dL (0.72-1.25); POTASSIUM 3.5 mmol/L (3.5-5.1)
[2021-07-09] MEDS: MEROPENEM 500 MG in SODIUM CHLORIDE 0.9% 50ML 50 ML IV SCH (06:13)
[2021-07-09 06:35] LABS: MAGNESIUM 1.6 MG/DL (1.3-2.1); PHOSPHORUS 3.2 MG/DL (2.3-4.7)
[2021-07-09 08:58] VITALS: BP 140/59
[2021-07-09] MEDS: MAGNESIUM OXIDE 400 MG TAB PO SCH ×4 (09:00→17:00)
[2021-07-09] MEDS ORDERED: PANTOPRAZOLE SOD 40 MG TABEC PO ONE (09:00)
[2021-07-09] MEDS: TAMSULOSIN HCL 0.4 MG CAP PO SCH ×2 (09:45→16:50)
[2021-07-09] MEDS: FERROUS SULFATE 325 MG TAB PO SCH (09:45)
[2021-07-09] MEDS: LEVOFLOXACIN 500MG/D5W 100ML 100 ML IV SCH (11:43)
[2021-07-09 15:46] VITALS: BP 118/60
[2021-07-09] MEDS: RIVAROXABAN 10 MG TABLET PO SCH (16:50)
[2021-07-09 20:00] VITALS: BP 127/66
[2021-07-09] MEDS: KETOROLAC TROMETHAMINE 30 MG/ML VIAL IV PRN (20:14)
[2021-07-09 23:01] VITALS: BP 127/66
[2021-07-10] VITALS: BP 123/61
[2021-07-10 04:00] VITALS: BP 136/70
[2021-07-10] MEDS ORDERED: PANTOPRAZOLE SOD 40 MG TABEC PO SCH (07:30)
[2021-07-10 07:56] VITALS: BP 129/60
[2021-07-10] MEDS: LEVOFLOXACIN 500MG/D5W 100ML 100 ML IV SCH (09:57)
[2021-07-10] MEDS: MAGNESIUM OXIDE 400 MG TAB PO SCH (09:57)
[2021-07-10] MEDS: FERROUS SULFATE 325 MG TAB PO SCH (09:57)
[2021-07-10] MEDS: TAMSULOSIN HCL 0.4 MG CAP PO SCH (09:57)
[2021-07-10 11:40] VITALS: BP 114/66
[2021-07-11] MEDS ORDERED: LEVOFLOXACIN 500 MG TAB PO SCH (10:00)
== END 2021-07-10 12:29 | disposition home health service (06) | DRG 907 ==
LOC: ER 19:53 → ERHOLD 23:17 → MED/SURG 07-04 04:37
PROVIDERS: ADMIT Internal Medicine; ATTEND Internal Medicine
PROC: 0W9J3ZZ Drainage of Pelvic Cavity, Percutaneous Approach (ICD-10-PCS; principal; 2021-07-04)
PROC: 02HV33Z Insertion of Infusion Device into Superior Vena Cava, Percutaneous Approach (ICD-10-PCS; 2021-07-04)
PROC: 0WQF0ZZ Repair Abdominal Wall, Open Approach (ICD-10-PCS; 2021-07-04)
DX: T81.32XA Disruption of internal operation (surgical) wound, not elsewhere classified, initial encounter (principal); I26.93 Single subsegmental thrombotic pulmonary embolism without acute cor pulmonale; K91.873 Postprocedural seroma of a digestive system organ or structure following other procedure; L03.311 Cellulitis of abdominal wall; B20 Human immunodeficiency virus [HIV] disease; D68.59 Other primary thrombophilia; I82.890 Acute embolism and thrombosis of other specified veins; K56.7 Ileus, unspecified; D64.9 Anemia, unspecified; K66.0 Peritoneal adhesions (postprocedural) (postinfection); B96.5 Pseudomonas (aeruginosa) (mallei) (pseudomallei) as the cause of diseases classified elsewhere; E88.09 Other disorders of plasma-protein metabolism, not elsewhere classified; N40.0 Benign prostatic hyperplasia without lower urinary tract symptoms; D50.9 Iron deficiency anemia, unspecified; Z85.038 Personal history of other malignant neoplasm of large intestine; Z68.32 Body mass index [BMI] 32.0-32.9, adult; Z74.09 Other reduced mobility; K76.0 Fatty (change of) liver, not elsewhere classified; E66.01 Morbid (severe) obesity due to excess calories; Z20.822 Contact with and (suspected) exposure to COVID-19
CPT/HCPCS: 36415; 36569; 70450; 71045; 71260; 74018; 74177; 74470; 76942; 80048; 80053; 80202; 83605; 83735; 84100; 85025; 85610; 86361; 86850; 86870; 86880; 86900; 86905; 86920; 86922; 87040; 87070; 87071; 87086; 87186; 87205; 93005; 93306; 94799; 96361; 97139; 99001; 99251; 99285; C1729; J1100; J1650; J1885; J1956; J2001; J2185; J2405; J2543; J2710; J3010; J3370; J7030; J7050; P9016; Q9967; U0002

== ENCOUNTER → 2021-08-16 | Day surgery (SDC) | payer MEDICARE, OTHER ==
[2021-08-13 14:43] LABS: BASOPHILS % 0.4 % (0.0-1.0); EOSINOPHILS % 0.8 % (0.0-6.0); HEMATOCRIT 36.4 % (38.2-49.6); HEMOGLOBIN 10.6 g/dL (14.0-18.0); LYMPHOCYTES # (AUTO) 1.3 (1.0-3.2); LYMPHOCYTES % 27.6 % (18.0-39.1); MEAN CORPUSCULAR HEMOGLOBIN 25.2 pg (28-32); MEAN CORPUSCULAR HGB CONC 29.1 g/dL (31-35); MEAN CORPUSCULAR VOLUME 86.5 fL (81-99); MONOCYTES # (AUTO) 0.4 (0.2-0.8); MONOCYTES % 9.3 % (4.4-11.3); NEUTROPHILS # (AUTO) 2.9 (2.1-6.9); NEUTROPHILS % 61.3 % (38.7-80.0); PLATELET COUNT 317 x10e3/uL (140-360); RED BLOOD COUNT 4.21 x10e6/uL (4.3-5.7)
[2021-08-13 14:58] LABS: ANION GAP 12.2 mmol/L (8-16); CALCIUM 8.7 mg/dL (8.4-10.2); CREATININE, SERUM 1.03 mg/dL (0.72-1.25); POTASSIUM 4.2 mmol/L (3.5-5.1)
[~2021-08-16] MED LIST changes: +BUPIVACAINE LIPOSOME/PF 266 MG/20 ML IJ ONE; +CEFTRIAXONE 1 GM VIAL ONE; +DEXAMETHASONE SOD PHOS INJ 4 MG/ML SDV ONE; +FENTANYL CITRATE/PF 100MCG/2 ML INJ ONE; +GABAPENTIN300 MG PO; +KETOROLAC TROMETHAMINE 30 MG/ML VIAL ONE; +ONDANSETRON HCL INJ 2MG/ML 2ML 2 MG/ML VIAL ONE; +POVIDONE IODINE 0.05% 0.05 % ML PO ONE; +PROPOFOL IV EMULSION 10 MG/ML 20 ML VIAL ONE; +SEVOFLURANE INHAL SOLN 250 ML PEN BTL ONE; +SODIUM CHLORIDE 0.9% 50ML 50 ML ONE
[2021-08-16 08:52] VITALS: BP 111/53
== END | disposition home or self-care (01) ==
LOC: OR 06:23
PROVIDERS: ATTEND Urology
DX: N47.1 Phimosis (principal); R97.20 Elevated prostate specific antigen [PSA]; N32.0 Bladder-neck obstruction; B20 Human immunodeficiency virus [HIV] disease; F32.A Depression, unspecified; K21.9 Gastro-esophageal reflux disease without esophagitis; Z01.810 Encounter for preprocedural cardiovascular examination; Z01.812 Encounter for preprocedural laboratory examination; Z01.818 Encounter for other preprocedural examination; Z20.822 Contact with and (suspected) exposure to COVID-19; Z79.02 Long term (current) use of antithrombotics/antiplatelets; Z79.899 Other long term (current) drug therapy; Z68.30 Body mass index [BMI] 30.0-30.9, adult; Z85.038 Personal history of other malignant neoplasm of large intestine; Z86.718 Personal history of other venous thrombosis and embolism
CPT/HCPCS: 36415; 54161; 71046; 80048; 85025; 88304; 93005; C9290; J0696; J1100; J1885; J2405; J2704; J3010; U0002